=== PATIENT | female | born 1995 | race Caucasian/White ===

== ENCOUNTER → 2016-12-03 00:35 | Emergency (ER) | payer OTHER ==
[2016-12-03 01:14] LABS: Alcohol 303 mg/dL (<10)
--- NOTE | 2016-12-03 03:27 | ED ---
Beatrice Lee Rebecca, scribed for Greg Bear MD on 12/03/16 at 0110 . Substance Abuse/Use - HPI Summary HPI Summary: Pt is a 23 y/o F BIBA who presents to ED with EtOH intoxication. EMS was called because her friends were concerned that she was unconscious and not responding. Per EMS, friends were unable to provide significant history. Level 5 caveat due to EtOH intoxication. - History Of Current Complaint Chief Complaint: EDSubstanceAbuse Stated Complaint: ALCOHOL CONSUMPTION Hx Obtained From: EMS Hx From Patient Unobtainable Due To: Other - EtOH intoxication Ingestion History: Type/Name Of Drug - EtOH Overdose Characteristics: Oral PMH/Surg Hx/FS Hx/Imm Hx Previously Healthy: No - UNKONWN 0 Level 5 caveat due to EtOH intoxication Infectious Disease History: No Infectious Disease History: Denies: Traveled Outside the [place] in Last 30 Days - unknown - Family History Known Family History: Positive: Unknown - Level 5 caveat due to EtOH intoxication - Social History Alcohol Use: unknown Substance Use Type: Reports: None Smoking Status (MU): Unknown if Ever Smoked Review of Systems - ROS Summary Review of Systems Summary: Level 5 caveat due to EtOH intoxication Neurological: Other - unsconscious, unresponsive MACHINE BOSS Positive: Other - EtOH intoxication All Other Systems Reviewed And Are Negative: No Physical Exam Triage Information Reviewed: Yes Vital Signs On Initial Exam: Initial Vitals Temp Pulse Resp BP Pulse Ox 97.1 F 80 14 97/52 99 12/03/16 00:45 12/03/16 00:45 12/03/16 00:45 12/03/16 00:45 12/03/16 00:45 Vital Signs Reviewed: Yes Appearance: Positive: Well-Appearing, No Pain Distress Skin: Positive: Warm Head/Face: Positive: Normal Head/Face Inspection Eyes: Positive: CHERELLE ENT: Positive: Hearing grossly normal Neck: Positive: Supple Respiratory/Lung Sounds: Positive: Breath Sounds Present Cardiovascular: Positive: RRR Abdomen Description: Positive: Nontender, Soft Bowel Sounds: Positive: Present Musculoskeletal: Positive: Strength/ROM Intact Neurological: Positive: Alert, Oriented to Person Place, Time Diagnostics - Vital Signs Vital Signs Temp Pulse Resp BP Pulse Ox 12/03/16 00:45 97.1 F 80 14 97/52 99 - Laboratory Lab Statement: Any lab studies that have been ordered have been reviewed, and results considered in the medical decision making process. Course/Dx - Course Assessment/Plan: Pt is a 23 y/o F BIBA who presents to ED with EtOH intoxication. EMS was called because her friends were concerned that she was unconscious and not responding. Per EMS, friends were unable to provide significant history. Level 5 caveat due to EtOH intoxication. Serum alcohol of 303. Upon EtOH metabolism, pt iwll be D/C to home with Dx of alcohol intoxication. - Diagnoses Provider Diagnoses: Alcohol intoxication Discharge - Discharge Plan Condition: Improved Disposition: HOME Patient Education Materials: Alcohol Intoxication (ED) The documentation as recorded by the Beatrice waller Rebecca accurately reflects the service I personally performed and the decisions made by , Greg Bear MD.
[2016-12-03 09:14] VITALS: BP 106/71
== END | disposition home or self-care (01) ==
LOC: ED 00:35 → EDBD 00:35
DX: F10.129 Alcohol abuse with intoxication, unspecified (principal)
CPT/HCPCS: 36415; 80320; 84702; 99283; G0480

== ENCOUNTER 2017-03-10 19:29 | Emergency (ER) | payer OTHER ==
[2017-03-10 19:36] VITALS: BP 117/72
[2017-03-10] MEDS ORDERED: Amoxicillin PO (*) 500 MG CAP PO ONE (19:48)
--- NOTE | 2017-03-11 16:51 | UC ---
Ear Complaint HPI - HPI Summary HPI Summary: 21 yo female with URI x days Now with right otalgia fever no n/v/d no cp or sob - History of Current Complaint Chief Complaint: UCEar Stated Complaint: CONGESTION Time Seen by Provider: 03/10/17 19:41 Hx Obtained From: Patient Hx Last Menstrual Period: 2 wks ago Onset/Duration: Gradual Onset Severity Initially: Moderate Severity Currently: Moderate Pain Intensity: 7 Pain Scale Used: 0-10 Numeric Associated Signs/Symptoms: Positive: URI Symptoms - Allergies/Home Medications Allergies/Adverse Reactions: Allergies Allergy/AdvReac Type Severity Reaction Status Date / Time No Known Allergies Allergy Verified 03/11/17 16:24 Home Medications: Home Medications Escitalopram Oxalate [Lexapro 10 mg] 1 tab PO DAILY 03/10/17 [History Confirmed 03/10/17] PMH/Surg Hx/FS Hx/Imm Hx Previously Healthy: Yes - Surgical History Surgical History: None - Family History Known Family History: Positive: Hypertension - Social History Alcohol Use: None Substance Use Type: Prescribed Smoking Status (MU): Never Smoked Tobacco Review of Systems Constitutional: Fever Skin: Negative Eyes: Negative ENT: Ear Ache, Nasal Discharge, Sinus Congestion Respiratory: Negative Cardiovascular: Negative Gastrointestinal: Negative Genitourinary: Negative Motor: Negative Neurovascular: Negative Musculoskeletal: Negative Neurological: Negative Psychological: Negative Is Patient Immunocompromised?: No All Other Systems Reviewed And Are Negative: Yes Physical Exam Triage Information Reviewed: Yes Appearance: Well-Appearing, No Pain Distress, Well-Nourished Vital Signs: Initial Vital Signs Temp 100.2 F 03/10/17 19:33 Pulse 116 03/10/17 19:33 Resp 12 03/10/17 19:33 BP 117/72 03/10/17 19:33 Pulse Ox 99 03/10/17 19:33 Vital Signs Reviewed: Yes Eyes: Positive: Conjunctiva Clear ENT: Positive: Nasal congestion, Tonsillar swelling, Uvula midline. Negative: Hearing grossly normal - slightly decreased, Tonsillar exudate, Trismus, Muffled voice, Hoarse voice, Dental tenderness, Sinus tenderness Neck: Positive: Supple, Nontender, Enlarged Nodes @ - mild ant cervical Respiratory: Positive: Lungs clear, Normal breath sounds, No respiratory distress Cardiovascular: Positive: RRR, No Murmur, Tachycardia Musculoskeletal: Positive: ROM Intact, No Edema Neurological: Positive: Alert Psychological Exam: Normal Skin Exam: Normal Ear Complaint Course/Dx - Differential Dx/Diagnosis Provider Diagnoses: right otitis media. viral URI Discharge - Discharge Plan Condition: Stable Disposition: HOME Prescriptions: Amoxicillin PO (*) [Amoxicillin 875 MG (*)] 875 mg PO BID #20 tab Patient Education Materials: Otitis Media (ED) [facility] - 2 Weeks (if hearing not back to normal) Additional Instructions: recheck in 4 days if pain not markedly improved saline nasal spray
== END 2017-03-10 20:00 | disposition home or self-care (01) ==
LOC: UCEAST 19:29
DX: J06.9 Acute upper respiratory infection, unspecified (principal); H66.91 Otitis media, unspecified, right ear
CPT/HCPCS: 99212; A9270-GY; G0463

== ENCOUNTER 2017-03-11 16:17 | Emergency (ER) | payer OTHER ==
[2017-03-11 16:24] VITALS: BP 114/60
--- NOTE | 2017-03-11 16:42 | UC ---
Ear Complaint HPI - HPI Summary HPI Summary: Nasal congestion started 3 days ago. At first was having mild ear pain that responded well to ibuprofen, but yesterday ear pain worsened and pt was seen here, dx-ed with AOM, placed on amoxicillin. Pt reports several AOM infections last year and "at first amoxicillin worked for me but after a while I got immune to it." Returns today because high fevers up to 103F continue, feels she is getting much worse. - History of Current Complaint Chief Complaint: UCEar Stated Complaint: EAR ACHE, AND FEVER Time Seen by Provider: 03/11/17 16:26 Hx Obtained From: Patient Hx Last Menstrual Period: 2 wks ago ?: No Onset/Duration: Sudden Onset, Lasting Days Severity Initially: Moderate Severity Currently: Moderate Associated Signs/Symptoms: Positive: Hearing Loss, URI Symptoms. Negative: Discharge - Allergies/Home Medications Allergies/Adverse Reactions: Allergies Allergy/AdvReac Type Severity Reaction Status Date / Time No Known Allergies Allergy Verified 03/11/17 16:24 PMH/Surg Hx/FS Hx/Imm Hx - Additional Past Medical History Additional PMH: Hx of repeat ear infections Psychological History: Anxiety - Surgical History Surgical History: None - Family History Known Family History: Positive: Unknown - Level 5 caveat due to EtOH intoxication - Social History Alcohol Use: None Substance Use Type: Prescribed Smoking Status (MU): Never Smoked Tobacco Review of Systems Constitutional: Fever, Chills Skin: Negative Eyes: Negative ENT: Sore Throat, Ear Ache, Nasal Discharge Respiratory: Cough Cardiovascular: Negative Gastrointestinal: Negative Genitourinary: Negative Motor: Negative Neurovascular: Negative Musculoskeletal: Negative Neurological: Negative Psychological: Negative Is Patient Immunocompromised?: No All Other Systems Reviewed And Are Negative: Yes Physical Exam Triage Information Reviewed: Yes Appearance: No Pain Distress, Well-Nourished Vital Signs: Initial Vital Signs Temp 99.0 F 03/11/17 16:21 Pulse 123 03/11/17 16:21 Resp 18 03/11/17 16:21 BP 114/60 03/11/17 16:21 Pulse Ox 100 03/11/17 16:21 Vital Signs Reviewed: Yes Eye Exam: Normal Eyes: Positive: Conjunctiva Clear ENT: Positive: Nasal congestion, Nasal drainage, TMs normal, Tonsillar swelling , Uvula midline. Negative: Pharyngeal erythema, TM bulging, TM dull, TM red, Tonsillar exudate, Hoarse voice Dental Exam: Normal Neck exam: Normal Neck: Positive: Supple, Nontender, No Lymphadenopathy Respiratory Exam: Normal, Other - Occ cough Respiratory: Positive: Chest non-tender, Lungs clear, Normal breath sounds, No respiratory distress, No accessory muscle use Cardiovascular: Positive: No Murmur, Tachycardia Musculoskeletal Exam: Normal Neurological Exam: Normal Neurological: Positive: Alert Psychological Exam: Normal Skin Exam: Normal Diagnostics - Radiology No standard instances Xray Interpretation: No Acute Changes Radiology Interpretation Completed By: Radiologist Ear Complaint Course/Dx - Course Course Of Treatment: Due to worsening fevers and deep pain that does not necessarily localize to the middle ear space, I discussed my concerns about possible bacterial infection with the pt and the pt's father (with pt's verbal consent). Pt would like to go home and get some sleep, but will go to the emergency department tomorrow if she dose not see some improvement. - Differential Dx/Diagnosis Provider Diagnoses: otalgia. fever Discharge - Discharge Plan Condition: Stable Disposition: HOME Patient Education Materials: Fever in Adults (ED), Earache (ED) Forms: *Gen. Provider Communication [facility]errals: [facility] [Medical Doctor] - Additional Instructions: You can continue the amoxicillin, but I am not certain if you have a viral illness or a bacterial illness. If you continue to have high and recurrent fevers tomorrow, I strongly advise you to go to the emergency department for further testing and treatment.
--- NOTE | 2017-03-11 17:23 | RAD ---
INDICATION: Cough and fever for days duration. COMPARISON: No relevant prior exams available on the [facility] PACS for comparison. TECHNIQUE: Dual energy PA and routine lateral views of the chest were obtained. REPORT: Coiled morphology artifact at the periphery of the LEFT mid to lower lung zone; conspicuous anterior to the patient on the lateral view without concern. No alveolar consolidation, pleural effusion, pneumothorax. The heart, pulmonary vasculature, and mediastinal contours are unremarkable. Unremarkable soft tissue contours and osseous structures. IMPRESSION: Negative for pneumonia. Normal exam.
== END 2017-03-11 17:57 | disposition home or self-care (01) ==
LOC: UCEAST 16:17
DX: H92.09 Otalgia, unspecified ear (principal); R50.9 Fever, unspecified; F41.9 Anxiety disorder, unspecified
CPT/HCPCS: 71020; 87502; 87651; 99211; G0463

== ENCOUNTER 2017-03-12 10:49 | Observation (INO) | payer OTHER ==
[2017-03-12] MEDS ORDERED: Acetaminophen TAB* 325 MG PO ONE (12:14)
[2017-03-12 12:39] LABS: Hematocrit 38 % (35-47); Hemoglobin 13.1 g/dl (12.0-16.0); Mean Corpuscular HGB Conc 34 g/dl (31-36); Mean Corpuscular Hemoglobin 32 pg (27-31); Mean Corpuscular Volume 92 fL (80-97); Mean Platelet Volume 8 um3 (7.4-10.4); Red Blood Count 4.14 10^6/ul (4.0-5.4); Red Cell Distribution Width 12 % (10.5-15); White Blood Count 7.2 10^3/ul (3.5-10.8)
[2017-03-12 13:10] LABS: ALT 8 U/L (7-52); AST 13 U/L (13-39); Albumin 3.7 g/dL (3.2-5.2); Alkaline Phosphatase 41 U/L (34-104); Anion Gap 6 mmol/L (2-11); BUN/Creatinine Ratio 7.2 (8-20); Blood Urea Nitrogen 5 mg/dL (6-24); C Reactive Protein 122.22 mg/L (< 5.00); CO2 Carbon Dioxide 27 mmol/L (22-32); Calcium 8.9 mg/dL (8.6-10.3); Chloride 101 mmol/L (101-111); EGFR African American 139.5 (>60); EGFR Non-African American 108.5 (>60); Globulin 3.5 g/dL (2-4); Glucose 124 mg/dL (70-100); Sodium 134 mmol/L (133-145); Total Protein 7.2 g/dL (6.4-8.9)
[2017-03-12 13:25] LABS: Mono Internal Control QC Line Present
[2017-03-12] MEDS: NS 0.9% 1000 ML* 2,000 ML IV ONE ×2 (14:20→15:56)
[2017-03-12] MEDS ORDERED: Ondansetron INJ* 2 MG/ML VIAL IV ONE (15:44)
[2017-03-12] MEDS ORDERED: cefTRIAXone(*) 1 GM in NS 0.9% 50 ML* 50 ML IVPB ONE (15:44)
[2017-03-12] MEDS ORDERED: Dexamethasone IV* 4 MG/ML 5 ML VIAL (20 MG) IVPB ONE (15:44)
[2017-03-12] MEDS ORDERED: Ketorolac INJ* 30 MG/ML 1 ML VIAL IV ONE (16:36)
[2017-03-12 17:42] LABS: Urine Bilirubin Negative (Negative); Urine Glucose Negative (Negative); Urine Nitrite Negative (Negative)
--- NOTE | 2017-03-12 18:09 | ED ---
Cole Lee Angela, scribed for Kyle Valente MD on 03/12/17 at 1528 . Complex/Multi-Sys Presentation - HPI Summary HPI Summary: This pt is a 21 y/o female presenting to [facility] c/o gradually worsening malaise, with right ear ache, fever, chills, and sore throat x5 days. Pt reports she woke up 5 days ago with right ear ache. She took Tylenol and had mild relief. Pt notes that 2 days ago her symptoms worsened and had sore throat (more R than L), fever and chills. She went to Urgent Care 2 days ago and was started on amoxicillin with no relief. Pt notes she can't swallow secondary to pain. Pt reports fever, maximum of 103, for which she has taken tylenol and advil with some relief but always comes back. She additionally states productive cough with yellow sputum which she feels comes from her nasal congestion. Pt denies vomiting, back pain. Since yesterday, pt has neck pain on lateral sides and pain on base of skull with neck movement. Also has headache with sinus pressure and congestion. Pt had a chest XR yesterday that resulted normal. Pt had a sinus infection in 8th grade. Pt has had this happen last year where she had right ear ache. - History Of Current Complaint Chief Complaint: EDFever Time Seen by Provider: 03/12/17 14:52 Hx Obtained From: Patient Onset/Duration: Lasting Days, Still Present Timing: Days Severity Initially: Severe Location: Pain At: - throat Character: Pressure Associated Signs And Symptoms: Positive: Headache, Cough, Fever, Other - sore throat, chills, rhinorrhea, sinus congestion/pressure, neck pain. Negative: Vomiting, Back Pain - Allergies/Home Medications Allergies/Adverse Reactions: Allergies Allergy/AdvReac Type Severity Reaction Status Date / Time No Known Allergies Allergy Verified 03/11/17 16:24 PMH/Surg Hx/FS Hx/Imm Hx Endocrine/Hematology History: Denies: Hx Diabetes Cardiovascular History: Denies: Hx Hypertension EENT History: Reports: Other - sinus infection x1 Infectious Disease History: No Infectious Disease History: Denies: Traveled Outside the [place] in Last 30 Days - Family History Known Family History: Positive: Hypertension - Social History Alcohol Use: None Substance Use Type: Reports: None, Prescribed Hx Tobacco Use: No Smoking Status (MU): Never Smoked Tobacco Review of Systems Positive: Fever, Chills ENT: Other - sinus congestion/pressure Positive: Sore Throat, Ear Ache - right, Nasal Discharge Positive: Cough - productive Negative: Vomiting Musculoskeletal: Other - neck pain Negative: Other - back pain Positive: Headache All Other Systems Reviewed And Are Negative: Yes Physical Exam - Summary Physical Exam Summary: General: ill-appearing, no pain distress Skin: warm, color reflects adequate perfusion, dry Head: normal Eyes: EOMI, CHERELLE ENT: Right ear with some erythema. There is no fluid behind the right ear. Posterior pharynx with erythema, no exudates, no peritonsillar abscess. Mild tonsillar swelling. Neck: supple, nontender Respiratory: CTA, breath sounds present Cardiovascular: RRR Abdomen: soft, nontender Bowel: present Musculoskeletal: normal, strength/ROM intact Neurological: normal, sensory/motor intact, A&O x3 Psychological: affect/mood appropriate Triage Information Reviewed: Yes Vital Signs On Initial Exam: Initial Vitals Temp Pulse Resp BP Pulse Ox 101.6 F 126 20 116/68 99 03/12/17 11:03 03/12/17 11:03 03/12/17 11:03 03/12/17 11:03 03/12/17 11:03 Vital Signs Reviewed: Yes - [place] Coma Scale Coma Scale Total: 15 Diagnostics - Vital Signs Vital Signs Temp Pulse Resp BP Pulse Ox 03/12/17 15:00 101 100 03/12/17 14:17 102 99 03/12/17 13:35 101.5 F 118 24 117/72 98 03/12/17 11:03 101.6 F 126 20 116/68 99 - Laboratory Lab Results: Lab Results 03/12/17 03/12/17 03/12/17 Range/Units 12:27 12:27 12:27 WBC 7.2 (3.5-10.8) 10^3/ul RBC 4.14 (4.0-5.4) 10^6/ul Hgb 13.1 (12.0-16.0) g/dl Hct 38 (35-47) % MCV 92 (80-97) fL MCH 32 H (27-31) pg MCHC 34 (31-36) g/dl RDW 12 (10.5-15) % Plt Count 206 (150-450) 10^3/ul MPV 8 (7.4-10.4) um3 Neut % (Auto) 79.6 (38-83) % Lymph % (Auto) 11.3 L (25-47) % Laurel % (Auto) 8.8 (1-9) % Eos % (Auto) 0 (0-6) % Baso % (Auto) 0.3 (0-2) % Absolute Neuts (auto) 5.7 (1.5-7.7) 10^3/ul Absolute Lymphs (auto) 0.8 L (1.0-4.8) 10^3/ul Absolute Monos (auto) 0.6 (0-0.8) 10^3/ul Absolute Eos (auto) 0 (0-0.6) 10^3/ul Absolute Basos (auto) 0 (0-0.2) 10^3/ul Absolute Nucleated RBC 0 10^3/ul Nucleated RBC % 0 Sodium 134 (133-145) mmol/L Potassium 4.0 (3.5-5.0) mmol/L Chloride 101 (101-111) mmol/L Carbon Dioxide 27 (22-32) mmol/L Anion Gap 6 (2-11) mmol/L BUN 5 L (6-24) mg/dL Creatinine 0.69 (0.51-0.95) mg/dL Est GFR ( Amer) 139.5 (>60) Est GFR (Non-Af Amer) 108.5 (>60) BUN/Creatinine Ratio 7.2 L (8-20) Glucose 124 H (70-100) mg/dL Lactic Acid (0.5-2.0) mmol/L Calcium 8.9 (8.6-10.3) mg/dL Total Bilirubin 0.30 (0.2-1.0) mg/dL AST 13 (13-39) U/L ALT 8 (7-52) U/L Alkaline Phosphatase 41 (34-104) U/L C-Reactive Protein 122.22 H (< 5.00) mg/L B-Natriuretic Peptide 43 ( - 100) pg/mL Total Protein 7.2 (6.4-8.9) g/dL Albumin 3.7 (3.2-5.2) g/dL Globulin 3.5 (2-4) g/dL Albumin/Globulin Ratio 1.1 (1-3) Beta HCG, Quant < 0.60 mIU/mL Monoscreen Negative (Negative) 03/12/17 Range/Units 12:27 WBC (3.5-10.8) 10^3/ul RBC (4.0-5.4) 10^6/ul Hgb (12.0-16.0) g/dl Hct (35-47) % MCV (80-97) fL MCH (27-31) pg MCHC (31-36) g/dl RDW (10.5-15) % Plt Count (150-450) 10^3/ul MPV (7.4-10.4) um3 Neut % (Auto) (38-83) % Lymph % (Auto) (25-47) % Laurel % (Auto) (1-9) % Eos % (Auto) (0-6) % Baso % (Auto) (0-2) % Absolute Neuts (auto) (1.5-7.7) 10^3/ul Absolute Lymphs (auto) (1.0-4.8) 10^3/ul Absolute Monos (auto) (0-0.8) 10^3/ul Absolute Eos (auto) (0-0.6) 10^3/ul Absolute Basos (auto) (0-0.2) 10^3/ul Absolute Nucleated RBC 10^3/ul Nucleated RBC % Sodium (133-145) mmol/L Potassium (3.5-5.0) mmol/L Chloride (101-111) mmol/L Carbon Dioxide (22-32) mmol/L Anion Gap (2-11) mmol/L BUN (6-24) mg/dL Creatinine (0.51-0.95) mg/dL Est GFR ( Amer) (>60) Est GFR (Non-Af Amer) (>60) BUN/Creatinine Ratio (8-20) Glucose (70-100) mg/dL Lactic Acid 1.3 (0.5-2.0) mmol/L Calcium (8.6-10.3) mg/dL Total Bilirubin (0.2-1.0) mg/dL AST (13-39) U/L ALT (7-52) U/L Alkaline Phosphatase (34-104) U/L C-Reactive Protein (< 5.00) mg/L B-Natriuretic Peptide ( - 100) pg/mL Total Protein (6.4-8.9) g/dL Albumin (3.2-5.2) g/dL Globulin (2-4) g/dL Albumin/Globulin Ratio (1-3) Beta HCG, Quant mIU/mL Monoscreen (Negative) Result Diagrams: 03/12/17 12:27 12 12:27 Lab Statement: Any lab studies that have been ordered have been reviewed, and results considered in the medical decision making process. Complex Multi-Symp Course/Dx Course Of Treatment: Medications reviewed. Allergies noted. In the ED course, pt was given IV fluids, Decadron, Rocephin, Tylenol, and Zofran. ADMIT HOSPITALIST STABLE. NO CRITICAL CARE TIME. - Diagnoses Provider Diagnoses: Fever, Nausea, Dehydration Discharge - Discharge Plan Condition: Stable Disposition: ADMITTED TO [facility] Referrals: [facility] - Dony SERNA [Primary Care Provider] - The documentation as recorded by the Cole waller Angela accurately reflects the service I personally performed and the decisions made by , Kyle Valente MD.
[2017-03-12] MEDS ORDERED: Acetaminophen TAB* 325 MG PO PRN (18:55)
[2017-03-12] MEDS ORDERED: NS 0.9% 1000 ML* 1,000 ML IV SCH (20:15)
[2017-03-12] MEDS: Amoxicillin PO (*) 875 MG TAB PO SCH (22:03)
--- NOTE | 2017-03-13 01:07 | HP ---
CC: [facility] at [facility] MEDICINE HISTORY AND PHYSICAL: DATE OF ADMISSION: 03/12/17 ATTENDING PHYSICIAN: Ruthie Ram DO * (DICTATED BY ANAY ANTONIO NP) PROVIDER: Anay Antonio NP CHIEF COMPLAINT: 1. Fever/viral syndrome. 2. Pharyngitis. 3. Right ear pain. HISTORY OF PRESENT ILLNESS: Ms. Chloe Zhao is a 21-year-old female that presented to the emergency room with a 5-day history of fever and sore throat that was progressively getting worse along with right ear pain. She was seen and treated at Urgent Care 2 days ago for a right ear infection and at that time , she was started on Augmentin 875 mg for which she has been taking for 2 days. The patient states she had no improvement and continued to have fever and painful swallowing, so she was instructed to report to the emergency room. She reports that her throat is tender, but it does not feel scratchy or irritated. She states that the throat pain has progressively gotten worse over the past 5 days. She reports that she has had generalized body aches and neck tenderness x5 days along with the fever. She states the pain is also in her right jaw and her teeth and she also complains of some maxillary tenderness bilaterally. Ms. Chloe Zhao states that she currently feels better after the treatment she has received in the ER. She currently denies shortness of breath, chest pain, nausea, vomiting or diarrhea. She denies abdominal pain or dysuria. She does report a fever and sore throat and due to the fever and sore throat, we will admit her for observation. PAST MEDICAL HISTORY: 1. Significant for anxiety. 2. She states that she has had 5 ear infections in the past year. Her last ear infection was 1 year ago. PAST SURGICAL HISTORY: Reports no surgical history. MEDICATIONS: 1. Lexapro. 2. control pill. ALLERGIES TO MEDICATION: No known allergies. FAMILY HISTORY: No relevant family history was reported. SOCIAL HISTORY: The patient denies smoking. Denies drug use. Reports rare use of alcohol. The patient is currently a student at [employer]. Surrogate decision maker is her father, Sung Zhao, phone number is [phone]. REVIEW OF SYSTEMS: There was a documented fever. She reports 20-pound weight loss since May, but states that is related to eating healthy and exercising, it is not unintentional. Cardiac: No chest pain. No edema. Respiratory: No cough. No hemoptysis. No shortness of breath. GI: No nausea, vomiting or diarrhea. Denies abdominal pain. : No gross hematuria or dysuria. Neuro: There is no focal weakness or sensory loss. Eyes: No visual complaints. ENT: No dysphagia. She does report painful swallowing x5 days, it has gotten progressively worse with pain in her jaw and teeth. Musculoskeletal: Reports generalized body aches. Skin: No rashes or lesions. Psych: Denies any anxiety or depression at this time. There has been no seizures. No loss of consciousness. Review of 14 systems was completed, all others were negative. PHYSICAL EXAMINATION GENERAL: At this time, Ms. Chloe Zhao is a 30-year-old female. She is alert and oriented, sitting on the stretcher. She does not appear to be in any acute distress. VITAL SIGNS: Blood pressure is 117/72, heart rate is 99, temp on admission was 101.5, it is down to 98.4, respirations are 18 and regular, O2 sat is 98%. HEENT: Head is atraumatic, normocephalic. Eyes: EOMs are intact. Sclerae anicteric, not pale. Oral mucosa, post pharyngeal erythema is noted. Right tonsil is enlarged. There is a small amount of exudate noted to the uvula. Mandibular and cervical chain lymphadenopathy noted and tonsillar lymphadenopathy also noted. NECK: Supple. She is able to touch her chin to her chest. LUNGS: Clear to auscultation bilaterally. No wheezes, rales or rhonchi. HEART: S1 and S2 is regular rate and rhythm. There are no murmurs, rubs or gallops. She is not currently tachycardic. ABDOMEN: Soft and nontender. Bowel sounds are present x4. EXTREMITIES: Pulses are +2 throughout. She is able to move all extremities with strength on 5/5. NEUROLOGIC: She is awake and alert, oriented x3. Speech is clear. There are no focal deficits. No gross focal deficits noted. SKIN: Intact. There are no rashes or lesions. PSYCH: Mood is appropriate. No anxiety at this time. DIAGNOSTIC STUDIES/LAB DATA: Completed today on 03/12/17, WBCs are 7.2, RBCs are 4.14, hemoglobin 13.1, hematocrit 38, platelets are 206. Sodium is 134, potassium 4.0, chloride is 101, carbon dioxide is 27, anion gap of 6, BUN is 5, creatinine is 0.69, glucose is 124, lactic acid is 1.3, calcium 8.9, AST is 13, ALT 8, C-reactive protein was 122.22, beta hCG quantitative was less than 0.60. Influenza A and B were negative. Group A strep, rapid strep was also negative. [place] screen was also negative. Urine had +1 ketones, specific gravity was 1.017, pH was 6. Urine ascorbic acid was 8. ASSESSMENT AND PLAN: Ms. Chloe Zhao is a 21-year-old female that presented to the emergency room today for fever and sore throat x5 days along with right ear pain. She was previously started on Augmentin 875 b.i.d. 2 days prior to her admission to the ER today. She continues to have fever, home fevers were reported to be 103 to 104. She was febrile on arrival to the ER with a temp of 101.6. We were asked to evaluate the patient due to her fever and sore throat. We will admit her under observation status for: 1. Fever, pharyngitis, right ear pain. The patient will be given IV fluids overnight and gentle hydration overnight at 75 mL per hour. We can continue Tylenol 650 mg p.o. q.4 hours as needed for pain or fever. We will continue her on Augmentin 875 p.o. b.i.d. 2. Anxiety. We will continue on her Lexapro that she currently takes at home. 3. FEN. We will give her a regular diet. 4. Code status is full code. 5. DVT prophylaxis. Up ad jenn. 5. Disposition. We will admit her under observation. I anticipate that this is likely viral in nature and she will be cleared to be discharged home in the a.m. TIME SPENT: Time spent on this admission was 60 minutes, greater than half the time was spent [id number] with the patient obtaining history and physical. The other half time was spent going over the plan of care with the patient and implementing the plan of care. I have discussed my plan of care with my attending, Dr. Ram, and she is in agreement. ANAY ANTONIO, [employer]CELSIOR MACHINE [employer]ER [id number]/[facility] #: [id number] RENAE
[2017-03-13] MEDS: Amoxicillin PO (*) 875 MG TAB PO SCH (08:24)
[2017-03-13 08:30] VITALS: BP 117/66
[2017-03-13] MEDS ORDERED: Benzocaine/Menthol LOZ* 1 LOZENGE PO PRN (08:30)
[2017-03-13] MEDS ORDERED: Citalopram TAB* 20 MG PO SCH ×2 (09:00→21:00)
[2017-03-13] MEDS ORDERED: ETH EST PO SCH ×2 (09:00→21:00)
[2017-03-13] MEDS ORDERED: NORETHINDRONE PO SCH ×2 (09:00→21:00)
--- NOTE | 2017-03-13 11:59 | PN ---
Subjective Date of Service: 03/13/17 Interval History: Patient seen and examined at bedside. Patient reports improved pain but still very sore. She was able to eat and drink this morning without difficulty. HR improved and afebrile since ED yesterday. Family History: Unchanged from Admission Social History: Unchanged from Admission Past Medical History: Unchanged from Admission Objective Active Medications: Acetaminophen (Tylenol Tab*) 650 mg PO Q4H PRN Amoxicillin/Clavulanate Potassium (Augmentin Tab*) 875 mg PO BID TOMASA Citalopram Hydrobromide (Celexa Tab*) 20 mg PO BEDTIME TOMASA Ethinyl Estradiol/Norethindrone (Junel (Nf)) 1 tab PO BEDTIME TOMASA Throat Lozenges (Chloraseptic Teto*) 1 teto PO Q6H PRN Vital Signs Temp Pulse Resp BP Pulse Ox 97.7 F 59 16 117/66 99 03/13/17 07:20 03/13/17 07:20 03/13/17 07:20 03/13/17 07:20 03/13/17 07:20 Oxygen Devices in Use Now: None Appearance: sitting up in bed, NAD Eyes: No Scleral Icterus Ears/Nose/Mouth/Throat: NL Teeth, Lips, Gums, - - post pharyngeal erythema; no patchy exudates Neck: NL Appearance and Movements; NL JVP Respiratory: Symmetrical Chest Expansion and Respiratory Effort, Clear to Auscultation Cardiovascular: NL Sounds; No Murmurs; No JVD Abdominal: NL Sounds; No Tenderness; No Distention Extremities: No Edema Skin: No Rash or Ulcers Neurological: Alert and Oriented x 3 Lines/Tubes/Other Access: Clean, Dry and Intact Peripheral IV Result Diagrams: 03/12/17 12:27 03/12/17 12:27 Additional Lab and Data: . Assess/Plan/Problems-Billing Patient is a 21 y/o F w/ no significant PMH who presented to the ER w/ worsening sore throat and neck pain after taking 2 days of amoxicillin. - Patient Problems (1) Pharyngitis Comment: Change to Augmentin. Strep test negative and flu swab negative. Continue analgesics with Ibuprofen and Tylenol. (2) SIRS (systemic inflammatory response syndrome) Comment: Fever and tachycardia improved. Secondary to dehydration and pharyngitis. Continue Augmentin. (3) DVT prophylaxis Comment: Low risk ambulation (4) Full code status Status and Disposition: OBV for pharyngitis. Give one dose of Toradol now and if pain improved likely dc home later today.
[2017-03-13] MEDS ORDERED: Amoxicillin/Clavulanate TAB* 875 MG PO SCH ×2 (12:00→16:00)
[2017-03-13] MEDS ORDERED: Ketorolac INJ* 30 MG/ML 1 ML VIAL IV PUSH ONE (12:30)
--- NOTE | 2017-03-14 02:11 | DS ---
DISCHARGE SUMMARY: DATE OF ADMISSION: 03/12/17 DATE OF DISCHARGE: 03/13/17 ATTENDING PHYSICIAN: Dr. Jess Mcgrath * (report dictated by Kourtney Leyva NP). PRIMARY DIAGNOSES: 1. Systemic inflammatory response syndrome with fever. 2. Acute pharyngitis. MEDICATIONS AT DISCHARGE: New medications: 1. Augmentin 875 mg oral twice daily for 10 days. 2. Ibuprofen 600 mg oral every 8 hours for 48 hours as needed for pain. 3. Tylenol 650 mg oral every 4 hours as needed. The following medications are medication the patient came in on: 1. Junel one tablet oral daily. 2. Lexapro 10 mg oral daily. HISTORY OF PRESENT ILLNESS AND HOSPITAL COURSE: Ms. Chloe Zhao is a 21- year- old female, who presented to the emergency room on 03/12/17 with 5-day history of fever and sore throat with progression. She had been seen in Urgent Care and started on amoxicillin. She had been taking the amoxicillin for 2 days and was having continued fevers and worsening throat pain, hence she came to the emergency room for further evaluation. In the emergency room, the patient was found to have fever of 101 and was tachycardic. She was admitted to the CDU for further treatment. She was given IV fluids and switched over to Augmentin for better coverage. She was given multiple doses of Toradol. With this medication, the patient's pain improved significantly. She was able to tolerate oral intake without difficulty. On 03/13/17, she had been afebrile for close to 24 hours. At this point, she was stable for discharge. PHYSICAL EXAMINATION: Temperature 97.7, heart rate 59, respiratory rate 16, blood pressure 117/66, oxygen saturation 99%. At this point, she is stable for discharge. DISCHARGE PLAN: The patient was discharged on a regular diet. The patient had been instructed to complete her full 10-day course of Augmentin. She has been instructed to take ibuprofen at this higher dose for 2 days to help with the pain and alternate with Tylenol. She will follow up with [facility] within 2 days for a followup prior to her departure back to [place]. I reviewed all these instructions. The patient is agreeable with her discharge today. She has been instructed to return to the hospital if she experiences any worsening shortness of breath, high fever, or uncontrolled pain or inability to tolerate oral intake. This is a summarized report of a complex medical history and hospital stay. For more details, please see the entire medical record. TIME SPENT: Time for this discharge was 50 minutes, and 25 minutes was spent with the patient and family discussing medications at discharge and followup instructions. CONDITION ON DISCHARGE: Stable. KOURTNEY LEYVA NP [id number]/[facility] #: [id number] RENAE
== END 2017-03-13 16:00 | disposition home or self-care (01) ==
LOC: ED 10:49 → MEDTELE 20:05
PROVIDERS: ADMIT Hospitalist; ATTEND Internal Medicine
DX: J02.9 Acute pharyngitis, unspecified (principal); R65.10 Systemic inflammatory response syndrome (SIRS) of non-infectious origin without acute organ dysfunction; R50.9 Fever, unspecified; Z79.899 Other long term (current) drug therapy; H92.01 Otalgia, right ear; F41.9 Anxiety disorder, unspecified
CPT/HCPCS: 36415; 80053; 81003; 83605; 83880; 84702; 85025; 86140; 86308; 87502; 87651; 96361; 96365; 96375; 99284; A9270-GY; G0378; J0696; J1100; J1885; J2405